=== PATIENT | female | born 1955 | race Caucasian/White ===

== ENCOUNTER 2020-03-09 14:05 | Emergency (ER) | payer OTHER, SELFPAY ==
[2020-03-09 14:10] VITALS: BP 167/66; PULSE 80; RESP 18; TEMP 36.7; O2SAT 95
--- NOTE | 2020-03-09 14:30 | DI.RAD_ITS ---
EXAM: XR SACROILIAC JOINTS CLINICAL HISTORY: pain left SI joint, fall. TECHNIQUE: 2D digital imaging was performed. COMPARISON: No exams were available for comparison FINDINGS: There is mild spurring of the SI joints. There is no SI joint widening. Visualized portions of the sacrum and iliac wings appear intact. The hip joint spaces are well maintained. There is acetabular spurring. Severe degenerative changes are seen in the lower lumbar spine. IMPRESSION: Minimal degenerative changes of the SI joints. DATA REPOSITORY: RADIATION DOSE DELIVERED:
--- NOTE | 2020-03-09 14:30 | DI.RAD_ITS ---
EXAM: XR LUMBAR SPINE COMPLETE CLINICAL HISTORY: pain, fall. TECHNIQUE: 2D digital imaging was performed. COMPARISON: No exams were available for comparison FINDINGS: No acute fracture is seen. There are severe degenerative disc changes at L 2 3 with prominent endpla te osteophytes and sclerosis. There is also scoliosis. There is also severe narrowing of the right- sided of the L 3 4 disc space and left side of the L 4 5 disc space. Prominent facet degenerative ch anges are seen. There is spondylolisthesis at L2-3. IMPRESSION: Severe degenerative changes and scoliosis. No acute fracture is seen. DATA REPOSITORY: RADIATION DOSE DELIVERED:
--- NOTE | 2020-03-09 14:30 | DI.US_ITS ---
EXAM: US LOWER EXTREMITY VENOUS LT CLINICAL HISTORY: asymmetric swelling of left lower leg, r/o DVT. TECHNIQUE: Lower extremity venous ultrasound performed using grayscale, color-flow, and spectral Dop pler analysis. COMPARISON: No exams were available for comparison FINDINGS: The common femoral, femoral and popliteal veins demonstrate normal compressibility, augmentation, and color Doppler. The posterior tibial veins are patent. The saphenous vein appears free of thrombus. No Arellano's cyst or hematoma is seen. IMPRESSION: No evidence of DVT. DATA REPOSITORY:
--- NOTE | 2020-03-09 14:46 | ED.GENADUL_ITS ---
Discharge Plan Disposition Patient Disposition: HOME Condition: Stable Discharge Details Chief Complaint: Orthopedic Clinical Impression: Back strain Primary Care Provider: Irene,Local ED Provider: Cecilia Bacon Home Meds and New Rx's Prescriptions: New cyclobenzaprine 10 mg tablet 10 mg PO HS PRNQty: 3 RF: 0 Continued celecoxib [Celebrex] 200 mg Capsule 200 mg PO DAILY RF: 0 montelukast 4 mg Tablet,Chewable 5 mg PO DAILY RF: 0 levothyroxine 100 mcg Tablet 100 mcg PO DAILY RF: 0 Advair HFA 115-21 mcg/actuation Hfa Aerosol Inhaler 1 puff INHALATION DAILY RF: 0 Discharge Instructions Instructions: Lower Back Exercises (ED) Additional Instructions: Ice or heat to her back for discomfort. Rest. No heavy exertion. Avoid bending. Avoid lifting. Consider Lidoderm patch [id number] for comfort. Patch stays on for 12 hours then is removed from the area for 12 hours. Use muscle relaxant if needed for difficulty sleeping or muscle spasm. This will cause drowsiness. Do not mix with alcohol. Do not attempt to drive while taking this medication. Please use at night before bed Follow-up with primary care doctor for persistence of discomfort or for any worsening pain. Return for any worsening, alarming symptoms, lower extremity weakness, difficulty controlling your urine or bowels or for unexpected symptoms as discussed. Return for any worsening or concerns if needed sooner Medical Decision Making 64-year-old patient presenting to the emergency room for complaints of left SI joint pain in the buttocks tenderness without radicular symptoms however patient is concerned with asymmetric left lower leg swelling which is also been noted in the last few days since onset. Patient is here with the possibility of DVT. Patient denies difficulty breathing shortness of breath or wheezing. No abdominal pain. No headache or dizziness. Patient does report she fell through a heating grate which was missing into the floor boards. Patient reports she fell into the floor with her right leg 2 to 3 weeks ago resulting in a hematoma to the right thigh. Patient did report initially experiencing a limping gait which she feels may have irritated the left lower back/buttocks area. Patient reports her right leg is no longer painful she does have a small area of swelling consistent with hematoma but is not concerned the possibility of fractures her pain is entirely relieved and she has a full range of motion. Patient is concerned with the new onset of left SI joint, back tenderness associated with swelling in the lower leg and is concerned the possibility of DVT. Patient is nothing to indicate ACS, PE or stroke at this time. On exam patient does have a palpable hematoma in the right thigh with full range of motion. No significant spinal tenderness. Mild SI joint tenderness noted on the left associated with mild pain with palpation in the left buttocks. Pain is somewhat worse with straight leg raise but no difficulty with straight leg raise bilaterally. DTRs intact distally. No foot drop. Mild asymmetric left leg swelling is noted. We will plan to obtain x-rays of the lumbar spine as well as SI joint in addition to ultrasound of the left leg to rule out DVT. Patient agrees this plan of care. Offered Motrin or Tylenol and declines at this time. X-rays reveal severe degenerative changes and scoliosis of the lumbar spine, minimal degenerative changes noted at the SI joint. No evidence of DVT noted on ultrasound. Imaging results discussed with the patient. I suspect the etiology of patient's pain is overcompensation due to right leg injury previously as well as patient is remodeling at home and reports she has been doing lots of lifting and moving as well as frequent bending which may have exacerbated her left lower back and buttock symptoms. Patient offered Lidoderm patch which she consents to. Will place a patch in the emergency room. We discussed [id number] patches for which she could use for outpatient management. Discussed use of cyclobenzaprine. Patient would prefer a few tablets of muscle relaxant if needed for the next few nights. We will plan to rest, avoid bending and lifting. Will continue ice heat and Tylenol. Patient is agreeable to this plan of care. Nothing to indicate neurosurgical emergency at this time. The patient was stable and requested discharge. Prior to discharge, my usual and customary return precautions were reviewed with the patient - this included follow-up instructions and reasons to return to the Emergency Department if conditions worsens, does not improve as expected, or other new concerns arise. HPI General Date/Time Provider Initiated Documentation: 03/09/20 14:09 . HPI Narrative: Is a 64-year-old patient presented to the emergency room for complaints of left leg pain. Patient describes pain in the left buttocks area. Patient reports 2 to 3 weeks ago she fell into a floor with her right leg. Patient reports there was a missing heating grate that her leg fell into. Patient ultimately reported experiencing right leg pain at that time described in the right thigh. Patient reports pain in the right thigh is entirely resolved she does have a area of swelling at the distal lateral thigh which is mildly tender with palpation otherwise right leg pain resolved. Patient does report limping gait for the last several weeks for which she suspects that she threw off her left hip. Patient reports for the last 4 to 5 days she is experienced left buttocks, lower back pain. Patient also reports in the last several days she has noted left lower leg swelling. Patient concerned the possibility of DVT in the left leg. Patient denies numbness, tingling or weakness. Patient reports pain with ambulation and sensation of occasional spastic type pain. Patient denies any chest pain, difficulty breathing shortness breath or wheezing. Has no abdominal complaints. Denies any head or neck complaints. Patient reports pain improved with rest. Patient denies any obvious pain in the lower extremities. No pain in the calf or feet. No other concerns or complaints at this time. Denies rash. Denies any radicular symptoms from the buttocks area Related Data Home Medications Medication Instructions Recorded Confirmed Advair HFA 1 puff INHALATION DAILY 03/09/20 03/09/20 celecoxib [Celebrex] 200 mg PO DAILY 03/09/20 03/09/20 cyclobenzaprine 10 mg PO HS PRN #3 tab 03/09/20 levothyroxine 100 mcg PO DAILY 03/09/20 03/09/20 montelukast 5 mg PO DAILY 03/09/20 03/09/20 Previous Rx's Medication Instructions Recorded cyclobenzaprine 10 mg PO HS PRN #3 tab 03/09/20 Allergies Allergy/AdvReac Type Severity Reaction Status Date / Time amoxicillin [From Augmentin] Allergy vomiting/di Unverified 03/09/20 14:16 arrhea clavulanic acid Allergy vomiting/di Unverified 03/09/20 14:16 [From Augmentin] arrhea egg Allergy vomiting/di Unverified 03/09/20 14:16 arrhea General Stated Complaint: Orthopedic KAYLEE: 3 Review of Systems All systems reviewed & are unremarkable except as noted in HPI and below PFSH Social History Smoking/Tobacco Use Status: Former Tobacco Use Alcohol Intake: current Alcohol Intake frequency: a few times a month Alcohol type: wine Drug use: Never Substance use type: does not use Do you feel safe at home: Yes Do you feel safe in your relationship?: Yes Exam Narrative Exam Narrative: CONST: Healthy appearing patient, in no acute distress. Well hydrated. Alert and oriented. HENMT: Head nomocephalic, normal to inspection. Atraumatic. Hearing grossly normal. External ear canal no erythema or swelling. EYES: General normal appearance. Alignment normal. Eyelids normal. Conjunctiva normal. Sclera normal. NECK: Normal visual inspection. FROM. No lymphadenopathy. Trachea midline. No Midline tenderness. CHEST: Normal insepection of the chest. RESP: Normal respiratory effort. Speaking full sentences. No cough. No wheezi ng. No retractions. CARDIO: No JVD. MUSCULOSKELETAL: FROM of all extremities. Distal neurovascularly intact. Sensation intact distally. Straight leg raise intact bilaterally without pain. Internal/external rotation of hips bilaterally maintained without pain. No thigh pain with palpation. Hematomas noted to the lateral distal aspect of the right thigh, mild tenderness at the site but no bony tenderness with palpation or with range of motion of the right leg. Knee exam bilaterally is benign. No palpable or focal tenderness. Full range of motion of knees bilaterally. DTRs are intact bilaterally and equal. No calf pain with palpation, ankle or foot pain with palpation noted bilaterally. Mild swelling of the right leg, 1+ pitting edema noted of the left leg which is asymmetric compared to the right. Distal pulses intact bilaterally. Back: No obvious spinal tenderness with palpation of the cervical, thoracic or lumbar spine. Pain with palpation of the left SI joint. Obvious ecchymosis or swelling. No CVA tenderness noted bilaterally SKIN: Normal. Dry. No rashes. NEURO: Alert and awake. Speech clear. PSYCH: Normal affect. Cooperative. Course Vital Signs Vital signs: Vital Signs Temperature 36.7 C 03/09/20 14:10 Pulse 80 03/09/20 14:10 Respiratory Rate 18 03/09/20 14:10 Blood Pressure 167/66 H 03/09/20 14:10 Pulse Oximetry 95 03/09/20 14:10 Temperature 36.7 C 03/09/20 14:10 Temperature Source Temporal Artery Scan 03/09/20 14:10 Pulse 80 03/09/20 14:10 Respiratory Rate 18 03/09/20 14:10 Respiratory Effort Non-Labored 03/09/20 14:14 Blood Pressure 167/66 H 03/09/20 14:10 Blood Pressure Position Sitting 03/09/20 14:10 Pulse Oximetry 95 03/09/20 14:10 Oxygen Delivery Method Room Air 03/09/20 14:10 Oxygen Flow Rate 0 03/09/20 14:10 Pain Level 10 03/09/20 14:18
[2020-03-09] MEDS: Lidocaine 5% Patch 1 PATCH TP (16:48)
[2020-03-09 17:41] VITALS: BP 158/73; PULSE 84; RESP 20; TEMP 36.8; O2SAT 97
== END 2020-03-09 16:40 | disposition home or self-care (01) ==
PROVIDERS: Emergency Provider Physician Assistant
DX: S39.012A Strain of muscle, fascia and tendon of lower back, initial encounter (principal); W13.3XXA Fall through floor, initial encounter; X50.0XXA Overexertion from strenuous movement or load, initial encounter; R60.0 Localized edema
CPT/HCPCS: 99284; 72110; 72202; 93971